=== PATIENT | female | born 1975 | race Caucasian/White ===

== ENCOUNTER 2018-12-11 21:00 | Emergency (ER) | payer OTHER ==
[~2018-12-11] VITALS: Wt 72.0 kg
[2018-12-11] MEDS ORDERED: ACETAMINOPHEN 500 MG TAB PO STA (23:13)
[2018-12-12] MEDS ORDERED: CETI10TA19 PO (03:18)
[2018-12-12] MEDS ORDERED: CEPH-443 PO (03:18)
[2018-12-12] MEDS ORDERED: ACETAMINOPHEN 500 MG TAB PO STA (03:26)
[2018-12-12] MEDS ORDERED: CEPHALEXIN 500 MG CAP PO ONE (03:30)
[2018-12-12 03:40] VITALS: BP 114/72; PULSE 89; RESP 16
--- NOTE | 2018-12-14 07:45 | ERD ---
ER Documentation Chief Complaint Chief Complaint INTERMITTENT FEVER FOR THE PAST FEW DAYS AND INTERMITTENT COUGHING HPI History of Present Illness: Patient coming in today with complaint of chronic cough that is intermittent for the past month as well as shortness of breath. Patient reports intermittent fever for the past 3 days. Patient denies any other associated symptoms. At home pharmacological/nonpharmacological treatment for symptoms: Denies Denies social concerns; Denies recent foreign travel ROS All systems reviewed and are negative except as per history of present illness. Medications Home Meds Active Scripts Cetirizine Hcl* (Cetirizine Hcl*) 10 Mg Tablet, 10 MG PO DAILY for cough/allergy symptoms, #30 TAB Prov:TAYLOR POTTER V SERVER 12/12/18 Cephalexin* (Keflex*) 500 Mg Capsule, 500 MG PO QID for urine infection for 7 Days, CAP Prov:TAYLOR POTTER V SERVER 12/12/18 Allergies Allergies: Coded Allergies: No Known Allergy (Unverified , 10/01/14) PMhx/Soc Medical and Surgical Hx: pt denies Medical Hx, pt denies Surgical Hx Hx Alcohol Use: No Hx Substance Use: No Hx Tobacco Use: No Smoking Status: Never smoker FmHx Family History: No coronary disease Physical Exam Vitals Vital Signs Date Temp Pulse Resp B/P (MAP) Pulse Ox O2 O2 Flow FiO2 Time Delivery Rate 12/12/18 97.0 89 16 114/72 98 Room Air 03:40 (86) 12/11/18 99.5 112 18 140/81 99 21:09 (100) Physical Exam Const: No acute distress, patient appears anxious and fidgety Head: Atraumatic Eyes: Normal Conjunctiva ENT: Normal External Ears, Nose and Mouth. Neck: Full range of motion. No meningismus. Resp: Clear to auscultation bilaterally, mild diminished to bases Cardio: Regular rate and rhythm, no murmurs Abd: Soft, non tender, non distended. Normal bowel sounds Skin: No petechiae or rashes Back: No midline or flank tenderness Ext: No cyanosis, or edema Neur: Awake and alert Psych: Normal Mood and Affect Result Diagram: 12/11/18 7490 Results 24 hrs Laboratory Tests Test 12/11/18 23:40 12/12/18 02:39 12/12/18 02:56 12/12/18 02:58 White Blood Count 8.1 10^3/ul Red Blood Count 4.26 10^6/ul Hemoglobin 12.1 g/dl Hematocrit 37.3 % Mean Corpuscular 87.6 fl Volume Mean Corpuscular 28.4 pg Hemoglobin Mean Corpuscular 32.4 g/dl Hemoglobin Concen t Red Cell 13.2 % Distribution Width Platelet Count 245 10^3/UL Mean Platelet 10.2 fl Volume Immature 0.200 % Granulocytes % Neutrophils % 64.6 % Lymphocytes % 27.6 % Monocytes % 6.9 % Eosinophils % 0.1 % Basophils % 0.6 % Nucleated Red 0.0 /100WBC Blood Cells % Immature 0.020 10^3/ul Granulocytes # Neutrophils # 5.2 10^3/ul Lymphocytes # 2.2 10^3/ul Monocytes # 0.6 10^3/ul Eosinophils # 0.0 10^3/ul Basophils # 0.1 10^3/ul Nucleated Red 0.0 10^3/ul Blood Cells # B-Type 68 PG/ML Natriuretic Peptide Urine Color YELLOW Urine Clarity CLEAR Urine pH 6.0 Urine Specific 1.010 Foreman Urine Ketones NEGATIVE mg/dL Urine Nitrite NEGATIVE mg/dL Urine Bilirubin NEGATIVE mg/dL Urine NEGATIVE mg/dL Urobilinogen Urine Leukocyte 1+ Wanda/ul Esterase Urine Microscopic 2 /HPF RBC Urine Microscopic 19 /HPF WBC Urine Bacteria FEW /HPF Urine Hemoglobin 1+ mg/dL Urine Glucose NEGATIVE mg/dL Urine Total NEGATIVE mg/dl Protein Bedside Urine pH 7.0 (LAB) Bedside Urine Negative Protein (LAB) Bedside Urine Negative Glucose (UA) Bedside Urine Negative Ketones (LAB) Bedside Urine Trace-lysed Blood Bedside Urine Negative Nitrite (LAB) Bedside Urine 1+ Leukocyte Esteras e (L POC Beta HCG, NEGATIVE Qualitative Current Medications Medications Dose Sig/Kasandra Start Time Status Last (Trade) Ordered Route PRN Stop Time Admin Dose Reason Admin 1,000 mg ONCE STAT 12/11/18 DC 12/11/18 Acetaminophen PO 23:13 23:37 (Tylenol 12/11/18 23:14 Tab) Cephalexin 500 mg ONCE ONCE 12/12/18 DC 12/12/18 (Keflex) PO 03:30 03:33 12/12/18 03:31 1,000 mg ONCE STAT 12/12/18 DC 12/12/18 Acetaminophen PO 03:26 03:34 (Tylenol 12/12/18 03:27 Tab) Procedures/MDM ED course includes a thorough examination and history. Medications: Acetaminophen Imaging: Chest x-ray Labs: BNP, CBC ED course: BMP within normal limits. CBC without leukocytosis or anemia. Chest x-ray without infiltrates. Upon reassessment patient reports that she is also concerned she is having dysuria and lower abdominal pain and vaginal discharge. Pelvic exam performed. Low suspicion for life-threatening medical emergency. Low suspicion for gynecol ogic/acute abdominal abdominal emergency that requires hospitalization or immediate surgical intervention. Low suspicion for coronary pulmonary emergency requires hospitalization or immediate surgical intervention. presenting with constellation of symptoms likely representing uncomplicated cough and dysuria as characterized by history, physical exam findings, radiologic findings, lab findings. Urogenital wet mount without Trichomonas or clue cells. Urinalysis with positive leukocyte esterase, positive WBCs, positive bacteria. X-ray impression showing: IMPRESSION: Prior granulomatous disease. No definite acute disease. RPTAT: HLBE Kiki Rosa, Physician No respiratory distress, otherwise relatively well appearing and nontoxic. Patient educated on diagnoses, prescriptions, follow-up care, return precautions. Strict return precautions given for worsening condition; questions answered discharge. Disposition for discharge with followup in 2 days with PCP/clinic. Departure Diagnosis: Primary Impression: Dysuria Additional Impressions: Cough UTI (urinary tract infection) Urinary tract infection type: site unspecified Hematuria presence: without hematuria Qualified Codes: N39.0 - Urinary tract infection, site not specified Condition: Stable Patient Instructions: Cough, Chronic, Uncertain Cause, (Adult) Referrals: [facility] YOU HAVE RECEIVED A MEDICAL SCREENING EXAM AND THE RESULTS INDICATE THAT YOU DO NOT HAVE A CONDITION THAT REQUIRES URGENT TREATMENT IN THE EMERGENCY DEPARTMENT. FURTHER EVALUATION AND TREATMENT OF YOUR CONDITION CAN WAIT UNTIL YOU ARE SEEN IN YOUR DOCTORS OFFICE WITHIN THE NEXT 1-2 DAYS. IT IS YOUR RESPONSIBILITY TO MAKE AN APPOINTMENT FOR FOLOW-UP CARE. IF YOU HAVE A PRIMARY DOCTOR --you should call your primary doctor and schedule an appointment IF YOU DO NOT HAVE A PRIMARY DOCTOR YOU CAN CALL OUR PHYSICIAN REFERRAL HOTLINE AT IF YOU CAN NOT AFFORD TO SEE A PHYSICIAN YOU CAN CHOSE FROM THE FOLLOWING [facility] [address] [place] [facility] [address] [facility] [address] [facility] [address] [facility] [address] [facility]. [facility] [address] [facility]. [facility] YOU HAVE RECEIVED A MEDICAL SCREENING EXAM AND THE RESULTS INDICATE THAT YOU DO NOT HAVE A CONDITION THAT REQUIRES URGENT TREATMENT IN THE EMERGENCY DEPARTMENT. FURTHER EVALUATION AND TREATMENT OF YOUR CONDITION CAN WAIT UNTIL YOU ARE SEEN IN YOUR DOCTORS OFFICE WITHIN THE NEXT 1-2 DAYS. IT IS YOUR RESPONSIBILITY TO MAKE AN APPOINTMENT FOR FOLOW-UP CARE. IF YOU HAVE A PRIMARY DOCTOR --you should call your primary doctor and schedule and appointment IF YOU DO NOT HAVE A PRIMARY DOCTOR YOU CAN CALL OUR PHYSICIAN REFERRAL HOTLINE AT . IF YOU CAN NOT AFFORD TO SEE A PHYSICIAN YOU CAN CHOSE FROM THE FOLLOWING [facility]: [facility] [address] [place] [address] [facility] [address] [place] [address] [facility] [address] [place] [address] Additional Instructions: Thank you very much for allowing us to participate in your care. Your health and safety is our top priority at [facility]. It is important to read all discharge instructions and education provided in your discharge packet. Call your primary care doctor TOMORROW for an appointment during the next 2-4 days and bring all the information and medications prescribed. Have prescriptions filled and follow precisely the directions on the label. Cephalexin is an antibiotic; take this medication for the next 7 days for urine infection. Cetirizine is a antihistamine; take this medication daily for cough and allergy-like symptoms. If the symptoms get worse and your provider is unavailable, return to the Emergency Department immediately. TAYLOR POTTER NP Dec 14, 2018 07:45
== END 2018-12-12 04:15 | disposition home or self-care (01) ==
LOC: FTE 21:00
DX: N39.0 Urinary tract infection, site not specified (principal)
CPT/HCPCS: 71046; 81001; 81003; 81025; 83880; 85025; 87210; 87591; Z7502; Z7610

== ENCOUNTER 2018-12-12 13:46 | Emergency (ER) | payer SELFPAY ==
[~2018-12-12] VITALS: Ht 175.3 cm; Wt 66.1 kg
[~2018-12-12 13:46] MED LIST: CEPH-443 PO; CETI10TA19 PO
[2018-12-12 14:00] VITALS: BP 136/88; PULSE 108; RESP 20; Ht 175.3 cm; Wt 66.1 kg
== END 2018-12-12 14:09 | disposition left against medical advice (07) ==
LOC: E/R 13:46
DX: Z53.21 Procedure and treatment not carried out due to patient leaving prior to being seen by health care provider (principal)